=== PATIENT | male | born 1990 | race Hispanic/Latino ===

== ENCOUNTER 2016-05-22 18:18 | Emergency (ER) | payer OTHER ==
[~2016-05-22] VITALS: Ht 167.6 cm; Wt 82.0 kg
[2016-05-22] MEDS ORDERED: LIDOCAINE/EPINEPHRINE 1%-1:100,000 (XYLOCAINE) 20ML VIAL TOP ONE (18:30)
[2016-05-22] MEDS ORDERED: LIDOCAINE/EPINEPHRINE 1% 1:100,000 (XYLOCAINE) 30 ML VIAL INJ ONE ×2 (18:33→18:35)
--- NOTE | 2016-05-22 18:47 | NUR ---
[facility] administered by siobhan PANCHAL repair done by JAEL PANCHAL.
[2016-05-22] MEDS ORDERED: TETANUS, DIPTHERIA, PERTUSSIS (ADACELL) VACCINE 0.5 ML VIAL IM ONE (18:50)
[2016-05-22 19:05] VITALS: BP 146/94
== END 2016-05-22 19:00 | disposition home or self-care (01) ==
LOC: ED 18:22
DX: S01.112A Laceration without foreign body of left eyelid and periocular area, initial encounter (principal); X99.1XXA Assault by knife, initial encounter; Y93.89 Activity, other specified; Y92.89 Other specified places as the place of occurrence of the external cause; Y99.0 Civilian activity done for income or pay
CPT/HCPCS: 12011; 64450; 90471; 90715; 99282; 99283

== ENCOUNTER → 2016-05-22 | Outpatient (CLI) | payer OTHER | LOC: EMS 16:58 | DX: Z53.20 Procedure and treatment not carried out because of patient's decision for unspecified reasons (principal) ==

== ENCOUNTER → 2016-05-28 | Outpatient (CLI) | payer OTHER ==
[~2016-05-28] VITALS: Ht 167.6 cm; Wt 82.0 kg
== END ==
LOC: EUOP 11:17
PROVIDERS: ATTEND Emergency Medicine
DX: Z48.02 Encounter for removal of sutures (principal)